=== PATIENT | female | born 1935 ===

== ENCOUNTER → 2018-02-05 15:56 | Outpatient (CLI) | payer OTHER | END | disposition home or self-care (01) | LOC: LAB 15:56 | DX: E03.8 Other specified hypothyroidism (principal); E55.9 Vitamin D deficiency, unspecified; R94.5 Abnormal results of liver function studies; Z13.220 Encounter for screening for lipoid disorders; R73.09 Other abnormal glucose ==

== ENCOUNTER 2019-12-29 11:05 | Outpatient (CLI) | payer OTHER | END 2019-12-29 11:11 | disposition home or self-care (01) | LOC: SONOGRAMA 11:05 | PROVIDERS: ATTEND Internal Medicine Gastroenterology | DX: R10.13 Epigastric pain (principal) ==

== ENCOUNTER 2019-12-30 08:00 | Outpatient (CLI) | payer OTHER | END 2019-12-30 15:00 | disposition home or self-care (01) | LOC: LAB 08:00 | PROVIDERS: ATTEND Internal Medicine Gastroenterology | DX: Z12.11 Encounter for screening for malignant neoplasm of colon (principal) ==

== ENCOUNTER → 2020-01-09 | Outpatient (CLI) | payer OTHER | END | disposition home or self-care (01) | LOC: RAD 09:42 | PROVIDERS: ATTEND Internal Medicine Gastroenterology | DX: K21.0 Gastro-esophageal reflux disease with esophagitis (principal); R10.13 Epigastric pain ==

== ENCOUNTER 2020-01-26 10:02 | Outpatient (CLI) | payer OTHER | END 2020-01-26 10:07 | disposition home or self-care (01) | LOC: SONOGRAMA 10:02 → TOM 10:02 | PROVIDERS: ATTEND Internal Medicine Gastroenterology | DX: K56.600 Partial intestinal obstruction, unspecified as to cause (principal); R19.5 Other fecal abnormalities ==

== ENCOUNTER 2020-06-21 17:03 | Outpatient (CLI) | payer OTHER | END 2020-06-21 17:06 | disposition home or self-care (01) | LOC: RAD 17:03 | DX: M51.34 Other intervertebral disc degeneration, thoracic region (principal); M51.37 Other intervertebral disc degeneration, lumbosacral region; M81.0 Age-related osteoporosis without current pathological fracture ==

== ENCOUNTER 2022-12-04 10:58 | Outpatient (CLI) | payer OTHER | END 2022-12-04 11:11 | disposition home or self-care (01) | LOC: SONOGRAMA 10:58 | PROVIDERS: ATTEND Family Medicine | DX: R05.8 Other specified cough (principal); M54.2 Cervicalgia; M25.552 Pain in left hip; R10.10 Upper abdominal pain, unspecified; R10.30 Lower abdominal pain, unspecified ==